=== PATIENT | male | born 1995 | race Two or more races ===

== ENCOUNTER 2018-06-23 20:30 | Emergency (ER) | payer OTHER ==
[~2018-06-23] VITALS: Ht 180.3 cm; Wt 74.5 kg
[2018-06-23 20:33] VITALS: BP 130/81
[2018-06-23 21:09] LABS: RAPID INFLUENZA A Negative (Negative); RAPID INFLUENZA B Negative (Negative)
== END 2018-06-23 21:33 | disposition home or self-care (01) ==
LOC: ED 21:27
DX: B34.9 Viral infection, unspecified (principal); H61.23 Impacted cerumen, bilateral; J06.9 Acute upper respiratory infection, unspecified
CPT/HCPCS: 71046; 87400; 99284